=== PATIENT | female | born 1955 | race Caucasian/White ===

== ENCOUNTER → 2024-10-22 | Outpatient (CLI) | payer MEDICARE, SELFPAY ==
--- NOTE | 2024-10-22 16:50 | RAD_ITS ---
PROCEDURE: PELVIS 1 OR 2 VIEWS 10/22/2024 REASON FOR EXAM: LUMBAR SPODYLOSIS TECHNIQUE: 2 view(s) of the pelvis. FINDINGS: Postoperative changes right hip arthroplasty, with intact hardware. Postoperative changes lower lumbar spine fusion. No acute fracture or dislocation. Diffuse osteopenia. Moderate degenerative changes left hip. SI joints are unremarkable. RAD/Pelvis 1 or 2 Views IMPRESSION: See above Reading Location: [facility]
--- NOTE | 2024-10-22 16:50 | RAD_ITS ---
PROCEDURE: LUMBAR SPINE 2 OR 3 VIEWS 10/22/2024 REASON FOR EXAM: LUMBAR SPODYLOSIS TECHNIQUE: 2 view(s) of the lumbar spine COMPARISON: None FINDINGS: Postoperative changes L3-L5 posterior fusion with pedicle screws, interconnecting rods and intervertebral body spacers. Hardware is intact. Lumbar lordosis is maintained. Vertebral body heights are within normal limits. Multilevel loss of disc spaces. Pedicles are intact. Degenerative changes of the lower lumbar spine. Mild degenerative changes of the SI joints. Partially imaged right hip arthroplasty. Moderate left hip osteoarthritis. Cholelithiasis. RAD/Lumbar Spine 2 or 3 Views IMPRESSION: Multilevel degenerative changes of the lumbar spine, most prominent in the lowe r lumbar spine. Other findings as described above. Reading Location: [facility]
== END | disposition home or self-care (01) ==
LOC: RAD 16:42
PROVIDERS: PCP Family Medicine; Referring Provider Anesthesiology; Visit Provider Anesthesiology
DX: M46.1 Sacroiliitis, not elsewhere classified (principal); M47.816 Spondylosis without myelopathy or radiculopathy, lumbar region
CPT/HCPCS: 72100; 72170